=== PATIENT | female | born 1955 | race Caucasian/White ===

== ENCOUNTER 2018-03-27 20:22 | Inpatient (IN) | payer MEDICARE, MEDICAID ==
--- NOTE | 2018-03-27 20:59 | ED Physician Chart ---
ED Chief Complaint/HPI - Patient Information Date Seen:: 03/27/18 Time Seen:: 20:59 Chief Complaint:: Increased agitation History of Present Illness:: 63 yo female was brought from [facility] to ER for evaluation of increased agitation and combative behavior. Upon arrival, patient was yelling and screaming to herself and staff. Patient tore her pants at ER. Allergies:: Allergies Allergy/AdvReac Type Severity Reaction Status Date / Time chlorpromazine Allergy Verified 03/27/18 20:32 [From Thorazine] Vitals:: Vital Signs - 8 hr 03/27/18 20:25 Temp 98.1 F HR 95 RR 20 BP 123/88 O2 Sat % 96 ED Review of Systems - Review of Systems General/Constitutional: No fever Skin: No bruising Head: No headache Eyes: No pain ENT: No nasal drainage Neck: No neck pain Cardio Vascular: No chest pain Pulmonary: No SOB GI: No nausea, No vomiting Musculoskeletal: No bone or joint pain Psychiatric: Prior psych history Neurological: No focal symptoms ED Past Medical History - Past Medical History Past Medical History: HTN, PUD/GERD, Other (CKD, weakness, encephalopathy, polyneuropathy) Social History: Non Smoker, No Alcohol, No Drug Use Psychiatricy History: Bipolar, Other (Psychosis) Family Medical History - Family Member Mother History Unknown: Yes ED Physical Exam - Physical Examination General/Constitutional: Awake, Alert Head: Atraumatic Eyes: PERRL Skin: No ecchymosis ENMT: Nasal exam nl Neck: No nuchal rigidity Respiratory: Clear to Auscultation, No Wheeze/Rhonchi/Rales Cardio Vascular: RRR, No murmur, gallop, rubs, NL S1 S2 GI: No tenderness/rebounding/guarding Extremities: normal strength in all extremities Neuro/Psych: No focal deficits ED Labs/Radiology/EKG Results - Lab Results Results: Laboratory Last Values WBC 8.0 Th/cmm (4.8-10.8) 03/27/18 21:03 RBC 4.40 Mil/cmm (3.80-5.10) 03/27/18 21:03 Hgb 12.8 gm/dL (12-16) 03/27/18 21:03 Hct 39.0 % (41.0-60) L 03/27/18 21:03 MCV 88.6 fl (81-100) 03/27/18 21:03 MCH 29.1 pg (27.0-31.0) 03/27/18 21:03 MCHC Differential 32.9 pg (28.0-36.0) 03/27/18 21:03 RDW 13.7 % (11.5-20.0) 03/27/18 21:03 Plt Count 215 Th/cmm (150-400) 03/27/18 21:03 MPV 11.4 fl 03/27/18 21:03 Neutrophils % 65.1 % (40.0-80.0) 03/27/18 21:03 Lymphocytes % 23.6 % (20.0-50.0) 03/27/18 21: Monocytes % 7.9 % (2.0-10.0) 03/27/18 21: Eosinophils % 2.9 % (0.0-5.0) 03/27/18 21: Basophils % 0.5 % (0.0-2.0) 03/27/18 21:03 Sodium 141 mEq/L (136-145) 03/27/18 21:03 Potassium 3.4 mEq/L (3.5-5.1) L 03/27/18 21:03 Chloride 102 mEq/L (98-107) 03/27/18 21:03 Carbon Dioxide 28.4 mEq/L (21.0-31.0) 03/27/18 21:03 Anion Gap 14.0 (7.0-16.0) 03/27/18 21:03 BUN 8 mg/dL (7-25) 03/27/18 21: Creatinine 0.7 mg/dL (0.6-1.2) 03/27/18 21:03 Est GFR ( Amer) > 60.0 ml/min (>90) 03/27/18 21:03 Est GFR (Non-Af Amer) > 60.0 ml/min 03/27/18 21:03 BUN/Creatinine Ratio 11.4 03/27/18 21:03 Glucose 111 mg/dL (70-105) H 03/27/18 21:03 POC Glucose 98 MG/DL (70 - 105) 03/27/18 22:46 Calcium 10.1 mg/dL (8.6-10.3) 11/27/18 21:03 Total Bilirubin 0.5 mg/dL (0.3-1.0) 03/27/18 21:03 AST 21 U/L (13-39) 03/27/18 21:03 ALT 15 U/L (7-52) 03/27/18 21:03 Alkaline Phosphatase 50 U/L (34-104) 03/27/18 21:03 Troponin I 0.01 ng/mL (0.01-0.05) 03/27/18 21:03 B-Natriuretic Peptide 24.1 pg/mL (5.0-100.0) 03/27/18 21:03 Total Protein 6.3 gm/dL (6.0-8.3) 03/27/18 21:03 Albumin 4.0 gm/dL (3.7-5.3) 03/27/18 21:03 Globulin 2.3 gm/dL 03/27/18 21:03 Albumin/Globulin Ratio 1.7 (1.0-1.8) 03/27/18 21:03 Triglycerides 96 mg/dL (<150) 03/27/18 21:03 Cholesterol 106 mg/dL (<200) 03/27/18 21:03 LDL Cholesterol Direct 50 mg/dL (75-193) L 03/27/18 21:03 HDL Cholesterol 41 mg/dL (23-92) 03/27/18 21:03 TSH 2.08 uIU/ml (0.34-5.60) 03/27/18 21:03 - EKG Interpretations EKG Time:: 20:55 Rate & Rhythm: 90 bpm, sinus rhythm [place]: Terminal axis (90, 270) Intervals: RBBB Comments:: Abnormal EKG ED Assessment - Assessment General Assessment: Hypokalemia GERD Hypertension Psychosis Assessment/Comments:: CBC, CMP, Trop, BNP EKG, CXR (refused) KCl 40mEq po x 1 (patient threw the medication away) Admit patient to [facility] ED Septic Shock - . Is Septic Shock (SBP<90, OR Lactate>4 mmol\L) present?: No - <6hrs of presentation: Vital Signs: Vital Signs - 8 hr 03/27/18 20:25 Temp 98.1 F HR 95 RR 20 BP 123/88 O2 Sat % 96 ED Reassessment (Disposition) - Reassessment Reassessment Condition:: Improved - Patient Disposition Discharge/Transfer:: David w/in this hosp Admitting Medical Physician:: Jatinder Kingsley Admitting Psych Physician:: Melissa Wilde
[2018-03-27 21:12] LABS: % BASOPHILS 0.5 % (0.0-2.0); % EOSINOPHILS 2.9 % (0.0-5.0); % LYMPHOCYTES 23.6 % (20.0-50.0); % MONOCYTES 7.9 % (2.0-10.0); % NEUTROPHILS 65.1 % (40.0-80.0); EOSINOPHILE ABSOLUTE 0.2 Th/cmm (0.1-0.4); HEMOGLOBIN 12.8 gm/dL (12-16); LYMPHOCYTE ABSOLUTE 1.9 Th/cmm (1.5-3.0); MEAN CELL VOLUME 88.6 fl (81-100); MEAN CORPUSCULAR HEMOGLOBIN 29.1 pg (27.0-31.0); MEAN CORPUSCULAR HGB CONC 32.9 pg (28.0-36.0); MEAN PLATELET VOLUME 11.4 fl; MONOCYTE ABSOLUTE 0.6 Th/cmm (0.3-1.0); NEUTROPHILE ABSOLUTE 5.3 Th/cmm (1.8-8.0); PLATELET COUNT 215 Th/cmm (150-400); RED CELL DISTRIBUTION WIDTH 13.7 % (11.5-20.0)
[2018-03-27] MEDS ORDERED: Haloperidol Lactate 5 mg/mL 1mL Vial IM STA (21:15)
[2018-03-27] MEDS ORDERED: Haloperidol Lactate 5 mg/mL 1mL Vial ONE (21:18)
[2018-03-27 21:28] LABS: ALB/GLOB RATIO 1.7 (1.0-1.8); ALKALINE PHOSPHATASE 50 U/L (34-104); BILIRUBIN,TOTAL 0.5 mg/dL (0.3-1.0); BUN - UREA NITROGEN 8 mg/dL (7-25); CALCIUM SERUM 10.1 mg/dL (8.6-10.3); CARBON DIOXIDE 28.4 mEq/L (21.0-31.0); CHLORIDE 102 mEq/L (98-107); CREATININE - SERUM 0.7 mg/dL (0.6-1.2); GFR AFRICAN-AMERICAN > 60.0 ml/min (>90); GFR NON AFRICAN-AMERICAN > 60.0 ml/min; GLUCOSE 111 mg/dL (70-105); POTASSIUM SERUM 3.4 mEq/L (3.5-5.1); SGOT 21 U/L (13-39); SGPT/ALT 15 U/L (7-52); SODIUM SERUM 141 mEq/L (136-145); TOTAL PROTEIN,SERUM 6.3 gm/dL (6.0-8.3)
[2018-03-27] MEDS ORDERED: Potassium Chloride Elixir 20 mEq /15 mL UDC PO ONE (21:48)
[2018-03-27] MEDS ORDERED: Potassium Chloride Elixir 20 mEq /15 mL UDC ONE (21:51)
[2018-03-27 22:44] VITALS: BP 122/68
[2018-03-27] MEDS ORDERED: Maalox 30 mL Cup PO PRN (22:49)
[2018-03-27] MEDS ORDERED: Magnesium Hydroxide (MOM) 30 mL UDC PO PRN ×2 (22:49→23:09)
[2018-03-27] MEDS ORDERED: Non-Formulary Item 1 EA (Melatonin [Melatonin] 5 MG) PO PRN (23:09)
[2018-03-28 07:02] LABS: CHOLESTEROL 106 mg/dL (<200); HDL -HIGH DENSITY LIPOPROTEIN 41 mg/dL (23-92); TRIGLYCERIDES 96 mg/dL (<150)
[2018-03-28] MEDS: Pantoprazole 40 mg EC Tab PO SCH ×2 (08:45→09:00)
[2018-03-28] MEDS: Multivitamin Tab PO SCH ×2 (08:45→09:00)
[2018-03-28] MEDS: Sulfamethoxazole/TMP 800/160mg Tab PO SCH ×3 (08:45→20:34)
--- NOTE | 2018-03-28 08:45 | Diagnostic Imaging Report ---
CHEST X-RAY: AP view INDICATION: Shortness of breath COMPARISON: None FINDINGS: Increased interstitial lung markings are noted. There is no focal consolidation or pleural effusions The heart is normal in size. Degenerative changes of the spine are noted. IMPRESSION: Increased interstitial lung markings. Interstitial infiltrates and mild congestion cannot be excluded. No focal consolidation identified.
[2018-03-28] MEDS ORDERED: Sulfamethoxazole/TMP 800/160mg Tab PO SCH (09:00)
[2018-03-28] MEDS ORDERED: Haloperidol Lactate 5 mg/mL 1mL Vial IM ONE (10:36)
--- NOTE | 2018-03-29 02:23 | Psychiatric Evaluation ---
DATE OF SERVICE: 03/28/2018 IDENTIFYING DATA: The patient is a 63-year-old woman, resident of [facility]. Information obtained by directly interviewing the patient as well as reviewing the admission papers. The patient is admitted on a voluntary basis in view of her acute psychosis and mood swings. CHIEF COMPLAINT: "I don't care and they are bothering me." HISTORY OF PRESENT ILLNESS: This is the first psychiatric hospitalization to [facility] for this 63-year-old who has been diagnosed to have schizoaffective disorder and had been noncompliant to medication and has been getting easily agitated and aggressive towards the staff and this patient has to be admitted over here for stabilization. Chart is reviewed. The patient is interviewed. During the interview, the patient has been banging on the plank and screaming and yelling. The patient is refusing to eat and drink. The patient has to be given a dose of haloperidol to contain her agitation along with Benadryl and Ativan. The patient has been placed on 250 mg of Depakote twice a day and the patient is also told to be placed on Zyprexa 5 mg twice a day to contain her agitation. The patient at this time is not providing much of information. PAST PSYCHIATRIC HISTORY: Details are not known. PHYSICAL EXAMINATION: Requested by Dr. Kingsley. SUBSTANCE ABUSE HISTORY: Details are not known. SOCIAL HISTORY: The patient is a resident of the group home facility. STRENGTH AND ASSETS: The patient seems to be in good physical health and is motivated for treatment. MENTAL STATUS EXAMINATION: The patient is a 63-year-old, looking her stated age. Moderately obese, superficially cooperative. Eye contact is poor. Mood is noted to be irritable. Affect is constricted. Insight and judgment at this time are noted to be still impaired. Impulse control is noted to be poor. Coping skills are noted to be very poor. The patient has been having difficult time to cope with the stress. The patient has been very irritable, angry and not able to contract for safety. Coping skills at this time are noted to be extremely poor. The patient has paranoid delusions. The patient is also having acute mood swings. ASSESSMENT: The patient is alert and aware that she is in the hospital, but not able to focus at this time. Please note that the patient's behavior is equally danger to others in view of her aggressive behavior. DIAGNOSTIC IMPRESSION: AXIS I: Schizoaffective disorder. AXIS II: None. AXIS III: As per Dr. Kingsley. IMMEDIATE TREATMENT PLAN: The patient is going to be observed on the inpatient unit, provided supportive psychotherapy. The patient is going to be closely monitored. Once stabilized, the patient is going to be discharged ____ to be followed up on an outpatient basis. JOB# [id number]
--- NOTE | 2018-03-29 04:48 | Consultation ---
DATE OF CONSULTATION: 03/27/2018 INTERNAL MEDICINE CONSULTATION HISTORY OF PRESENT ILLNESS: The patient is a 63-year-old female patient of mine. PAST MEDICAL HISTORY: Significant for hypertension, CHF, coronary artery disease, arthritis, peptic ulcer disease, and osteoporosis. SOCIAL HISTORY: No history of smoking, alcohol abuse. OBSTETRIC HISTORY: P0+0, menses are postmenopausal. REVIEW OF SYSTEMS: No chest pain. No shortness of breath. No nausea. No vomiting. No melena. No hematochezia. PHYSICAL EXAMINATION: VITAL SIGNS: Stable. LUNGS: Clear. CARDIOVASCULAR: First and second heart sounds are normal. Rare systolic present. ABDOMEN: Soft. Bowel sounds present and good. EXTREMITIES: Show arthritis. NEUROLOGIC: The patient has dementia. MEDICAL DIAGNOSIS: As dictated above. Labs reviewed. Continue current medical management. JOB# [id number]
--- NOTE | 2018-03-29 04:55 | Progress Notes ---
DATE: 03/28/2018 INTERNAL MEDICINE CONSULTATION FOLLOWUP SUBJECTIVE: The patient is a 63-year-old female. Current medical problems include hypertension, CHF, coronary artery disease, peptic ulcer disease, gastritis, arthritis, and osteoporosis. No new symptoms. OBJECTIVE: VITAL SIGNS: Stable. LUNGS: Clear. HEART: First and second heart sounds are normal. Rare systolic present. ABDOMEN: Soft, bowel sounds present and good. EXTREMITIES: Show arthritis. NEUROLOGIC: The patient has dementia. PLAN: Continue current medical management. Psych consult reviewed. JOB# [id number]
[2018-03-29] MEDS: Pantoprazole 40 mg EC Tab PO SCH (08:48)
[2018-03-29] MEDS: Multivitamin Tab PO SCH (08:49)
[2018-03-29] MEDS: Sulfamethoxazole/TMP 800/160mg Tab PO SCH ×3 (08:49→21:09)
[2018-03-29] MEDS ORDERED: Probiotic Screen MC PRN (13:15)
--- NOTE | 2018-03-29 15:06 | Progress Notes ---
DATE: 03/29/2018 SUBJECTIVE: Staff was spoken to. The patient is interviewed. Mood is noted to be irritable. Affect is constricted. The patient is still screaming and yelling and is not able to contract for safety. The patient has been having acute mood swings. The patient is currently on Depakote 250 mg twice a day and Zyprexa has been placed on 5 mg twice a day. With these medications, the patient is going to be closely monitored. The patient has been having a low potassium and the staff requested to get in touch with the Dr. Kingsley to adjust the potassium level at this time. ASSESSMENT: The patient is still grossly psychotic and impulsive. PLAN: To continue the patient with the supportive therapy. I encouraged the patient to verbalize the concerns rather than to act out. JOB# [id number]
--- NOTE | 2018-03-30 06:14 | Progress Notes ---
DATE: 03/29/2018 INTERNAL MEDICINE CONSULTATION FOLLOWUP The patient is a 63-year-old female. Current medical problems include CHF, hypertension, coronary artery disease, peptic ulcer disease, gastritis, arthritis, and osteoporosis. CHIEF COMPLAINT: No new symptoms. No vomiting or diarrhea. No melena. No hematochezia. OBJECTIVE: VITAL SIGNS: Stable. LUNGS: Clear. HEART: First and second heart sounds are normal. Rare systolic present. ABDOMEN: Soft. Bowel sounds present and good. EXTREMITIES: Show arthritis. NEUROLOGIC: The patient has no focal motor deficit. PLAN: Continue current medical management. Psych consult reviewed. JOB# [id number]
[2018-03-30] MEDS: Pantoprazole 40 mg EC Tab PO SCH (08:40)
[2018-03-30] MEDS: Lactobacillus Rhamnosus GG 15 Billion CFU CAP.SPRINK PO SCH (08:40)
[2018-03-30] MEDS: Sulfamethoxazole/TMP 800/160mg Tab PO SCH ×2 (08:41→21:20)
--- NOTE | 2018-03-30 08:43 | Consultation ---
DATE OF CONSULTATION: 03/29/2018 REFERRING PHYSICIAN: Melissa Wilde MD TYPE OF CONSULTATION: Psychology HISTORY OF PRESENT ILLNESS: The patient is a 63-year-old female. The patient is a resident of [facility]. The following is by record review and by the patient's self-report. The patient is being admitted due to acute psychosis as well as extreme mood swings. The staff at the patient's facility report that the patient had become noncompliant with the medication and was easily agitated and aggressive towards staff members. At the time of the clinical interview the patient is yelling and banging her fists on the front of the Nena chair. The patient did not answer questions about suicidal ideation or homicidal ideation, plan or intention. The patient is difficult to redirect and is not making much sense at the time of this clinical interview. PAST MEDICAL HISTORY: Please see history and physical by Dr. Kingsley. PAST PSYCHIATRIC HISTORY: Records are unavailable. Details are unknown. The patient is under the care of Dr Salazar at her placement. SUBSTANCE ABUSE HISTORY: The patient did not answer these questions. PSYCHOSOCIAL HISTORY: The patient did not answer questions about occupational or educational history or anabaptism affiliation. The patient did not answer questions about history of physical or sexual abuse or current legal problems. The patient did not answer questions about any support system or family involvement in her care. MENTAL STATUS EXAMINATION: The patient appears to be older than her stated age. The patient's attitude is guarded and suspicious. Eye contact is fair to poor. Speech is loud and pressured and rambling. Mood is irritable. Affect is constricted. Thought process shows to be markedly tangential with loose associations and/or flight of ideas. Thought content is impoverished with a poor fund of knowledge. The patient did not answer questions about suicidal ideation, plan or intention. The patient denied having any auditory or visual hallucinations. The patient's behavior has been intermittently explosive on the unit and difficult to redirect. Impulse control is inadequate. Concentration is poor. The patient did not participate in the memory assessment. Sensorium is alert and oriented to self and place only. The patient is unable to contract for safety. The patient did not participate in the interpretation of proverbs. Insight is impaired. Judgment is impaired. DIAGNOSTIC IMPRESSION: AXIS I: Schizoaffective disorder. AXIS II: Deferred. AXIS III: Per Dr. Kingsley. TREATMENT PLAN: The patient has been seen by Dr. Wilde for psychiatric evaluation and for the management of the patient's psychotropic medications. We will provide supportive psychotherapy to include reality orientation, differentiation and integration. We will provide limit setting and de-escalation. We will provide stress management for the patient to increase her frustration tolerance. We will provide coping strategies for phase of life issues as well as chronic severe mental illness. We will provide motivational enhancement for the patient to become compliant and stay compliant with all aspects of her care and treatment and more specifically her medication regimen. We will encourage the patient to demonstrate emotional and self-regulation prior to her discharge. We will provide daily opportunities for the patient to verbally contract for safety with no self-harm or harm to others. Thank you, Dr. Wilde, for this consult and the opportunity to participate in this patient's care. JOB# [id number]
[2018-03-30] MEDS ORDERED: Haloperidol Lactate 5 mg/mL 1mL Vial ONE (10:58)
[2018-03-30] MEDS ORDERED: Haloperidol Lactate 5 mg/mL 1mL Vial IM ONE (11:05)
[2018-03-30] MEDS: Multivitamin Tab PO SCH (11:40)
--- NOTE | 2018-03-30 20:37 | Progress Notes ---
DATE: 03/30/2018 INTERNAL MEDICINE CONSULTATION FOLLOWUP SUBJECTIVE: The patient is a 63-year-old female. Current medical problem include hypertension, CHF, coronary artery disease, peptic ulcer disease, arthritis and osteoporosis. OBJECTIVE: VITAL SIGNS: Stable. LUNGS: Clear. HEART: First and second sounds are normal. Systolic present. ABDOMEN: Soft. Bowel sounds are present and good. EXTREMITIES: Show arthritis. NEUROLOGIC: The patient has no focal motor deficit. PLAN: Continue current medical management. Psych consult reviewed. JOB# [id number]
[2018-03-31] MEDS: Pantoprazole 40 mg EC Tab PO SCH (08:58)
[2018-03-31] MEDS: Sulfamethoxazole/TMP 800/160mg Tab PO SCH ×2 (08:58→20:34)
[2018-03-31] MEDS: Multivitamin Tab PO SCH (08:59)
[2018-03-31] MEDS: Lactobacillus Rhamnosus GG 15 Billion CFU CAP.SPRINK PO SCH (08:59)
--- NOTE | 2018-03-31 09:26 | Progress Notes ---
DATE: 03/30/2018 PSYCHIATRIC PROGRESS NOTE SUBJECTIVE: Staff was spoken to. The patient is interviewed. Mood is noted to be irritable. Affect is constricted. Insight and judgment, at this time, are noted to be still impaired. Impulse control is noted to be poor. Coping skills are also noted to be very poor. The patient has been very disruptive, screaming, and yelling, and has been trying to disrobe, and the patient has been found naked on the unit. The patient has been currently on Depakote and Zyprexa. PLAN: Continue the patient with the current medications. We encouraged the patient to verbalize the concerns. The patient is not ready to be discharged to a lower level of care in view of her acute psychosis. JOB# [id number]
--- NOTE | 2018-03-31 17:07 | Progress Notes ---
DATE: 03/31/2018 SUBJECTIVE: Staff was spoken to. The patient is interviewed. Mood is noted to be irritable. Affect is constricted. The patient's insight and judgment are noted to be still impaired. Impulse control is noted to be limited. The patient has been talking nonstop and the patient has no insight into her illness. Coping skills at this time are noted to be very poor. The patient has been currently on 5 mg twice a day of the olanzapine. Plan to increase the dose to 10 mg twice a day for her acute psychosis and the patient is going to be followed up with the supportive therapy. The patient, however, has been less aggressive compared to the other day. ASSESSMENT: The patient is still grossly psychotic and impulsive. PLAN: To continue the patient with the supportive therapy and follow up. [facility]# [id number]
[2018-04-01] MEDS: Multivitamin Tab PO SCH (08:52)
[2018-04-01] MEDS: Lactobacillus Rhamnosus GG 15 Billion CFU CAP.SPRINK PO SCH (08:52)
[2018-04-01] MEDS: Sulfamethoxazole/TMP 800/160mg Tab PO SCH ×2 (08:53→20:19)
[2018-04-01] MEDS: Pantoprazole 40 mg EC Tab PO SCH (08:53)
--- NOTE | 2018-04-01 16:14 | Progress Notes ---
DATE: 04/01/2018 SUBJECTIVE: The patient is a 63-year-old female. Current medical problems include hypertension, CHF, coronary artery disease, peptic ulcer disease, gastritis, arthritis. No new symptoms. OBJECTIVE: VITAL SIGNS: Stable. LUNGS: Clear. HEART: First and second heart sounds normal. No gallop. Systolic present. ABDOMEN: Soft. Bowel sounds are present and good. EXTREMITIES: Show arthritis. NEUROLOGIC: The patient has dementia. Continue current medical diagnoses. Continue current treatment. Psych consult reviewed. JOB# [id number]
--- NOTE | 2018-04-01 20:29 | Progress Notes ---
DATE: 04/01/2018 SUBJECTIVE: Staff was spoken to. The patient is interviewed. Mood is noted to be irritable. Affect is constricted. Insight and judgment at this time are noted to be impaired. Impulse control is noted to be limited. The patient has been screaming and yelling and is reluctant to comply with the medication. The patient has been extremely paranoid and has been refusing to comply with the medications by mouth and hence we decided to give the patient 5 mg of the Zyprexa, ____ mg of Benadryl IM and follow the patient with the supportive therapy. ASSESSMENT: The patient is still grossly psychotic. PLAN: To continue the patient with above changes with the medications and follow her up. JOB# [id number]
[2018-04-02] MEDS: Multivitamin Tab PO SCH (08:25)
[2018-04-02] MEDS: Sulfamethoxazole/TMP 800/160mg Tab PO SCH (08:25)
[2018-04-02] MEDS: Pantoprazole 40 mg EC Tab PO SCH (08:26)
[2018-04-02] MEDS: Lactobacillus Rhamnosus GG 15 Billion CFU CAP.SPRINK PO SCH (08:26)
--- NOTE | 2018-04-03 03:11 | Progress Notes ---
DATE: 04/02/2018 SUBJECTIVE: The patient is a 63-year-old female. Current medical problems include CHF, hypertension, coronary artery disease, peptic ulcer disease, gastritis, arthritis, and osteoporosis. No new symptoms. OBJECTIVE: VITAL SIGNS: Stable. LUNGS: Clear. HEART: First and second heart sounds are normal. No gallop. Systolic present. ABDOMEN: Soft. Bowel sounds present and good. EXTREMITIES: Show arthritis. NEUROLOGIC: The patient has no focal motor deficit. PLAN: Continue current medical management. Psych consult reviewed. JOB# [id number]
--- NOTE | 2018-04-03 03:20 | Progress Notes ---
DATE: 04/02/2018 PSYCHIATRIC PROGRESS NOTE Staff was spoken to. The patient is interviewed. Mood is noted to be irritable. Affect is constricted. The patient is constantly talking and has no insight into her illness. The patient is screaming and yelling. Coping skills are noted to be extremely poor. Mood swings are still noted and hence it is decided to increase the dose on the Depakote and add lithium and Klonopin to contain the mood swings and impulsivity and follow the patient with the supportive therapy and followup. JOB# [id number]
[2018-04-03] MEDS: Lactobacillus Rhamnosus GG 15 Billion CFU CAP.SPRINK PO SCH (09:13)
[2018-04-03] MEDS: Pantoprazole 40 mg EC Tab PO SCH (09:14)
[2018-04-03] MEDS: Multivitamin Tab PO SCH (09:14)
--- NOTE | 2018-04-03 10:15 | Progress Notes ---
DATE: 04/03/2018 INTERNAL MEDICINE CONSULTATION FOLLOWUP SUBJECTIVE: The patient is a 63-year-old female. Current medical problems include hypertension, CHF, coronary artery disease, peptic ulcer disease, gastritis, arthritis. No new symptoms. OBJECTIVE: VITAL SIGNS: Stable. LUNGS: Clear. HEART: First and second heart sound normal. Rare systolic present. ABDOMEN: Soft. Bowel sounds are present and good. EXTREMITIES: Show arthritis. NEUROLOGIC: The patient has dementia. ASSESSMENT AND PLAN: Continue current medical management. Psych consult reviewed. [facility]# [id number]
[2018-04-04] MEDS: Lactobacillus Rhamnosus GG 15 Billion CFU CAP.SPRINK PO SCH (08:32)
[2018-04-04] MEDS: Multivitamin Tab PO SCH (08:32)
[2018-04-04] MEDS: Pantoprazole 40 mg EC Tab PO SCH (08:33)
--- NOTE | 2018-04-04 09:02 | Progress Notes ---
DATE: 04/03/2018 SUBJECTIVE: Staff was spoken to. The patient is interviewed. Mood is noted to be irritable. Affect is constricted. Insight and judgment at this time are noted to be still impaired. Impulse control is noted to be poor. Coping skills are also noted to be poor. The patient has been having difficult time to cope with the stress. The patient's hyperverbosity has come down. No side effects to the medications are noted today. ASSESSMENT: The patient's mood swings are coming under control. PLAN: To continue the patient with the supportive therapy and followup. JOB# [id number]
--- NOTE | 2018-04-05 04:20 | Progress Notes ---
DATE: 04/04/2018 PSYCHIATRIC PROGRESS NOTE SUBJECTIVE: Staff was spoken to. The patient is interviewed. Mood is noted to be less irritable. Affect is appropriate. Mood swings are coming under control. No side effects to the medications are noted. The patient was agitated early and has to be given a dose of the Zyprexa and Benadryl. No side effects to the medications are noted at this time. ASSESSMENT: The patient is stabilizing. PLAN: To discharge the patient back to the [facility] and followup. JOB# [id number]
--- NOTE | 2018-04-07 10:56 | Discharge Summary ---
DATE OF DISCHARGE: 04/04/2018 PSYCHIATRIC DISCHARGE SUMMARY IDENTIFYING DATA: The patient is a 63-year-old woman, resident of [facility]. Information obtained directly interviewing the patient as well as reviewing the admission papers. JUSTIFICATION OF HOSPITALIZATION: The patient is admitted for acute mood swings and psychosis. CHIEF COMPLAINT: "I don't care, they are bothering me." DIAGNOSES AT THE TIME OF ADMISSION: AXIS I: Schizoaffective disorder. AXIS II: None. AXIS III: As per Dr. Kingsley. HISTORY OF PRESENT ILLNESS: Please review the 03/28/2018 dictation done by me. HOSPITAL COURSE AND RESPONSE TO TREATMENT: The patient has been observed on the inpatient unit, provided with supportive psychotherapy. The patient has been constantly screaming and yelling and has been aggressive towards the staff. The patient has been on Depakote, which was given 250 mg twice a day, Zyprexa was given 5 mg twice a day to contain the agitated behavior and patient has to be redirected constantly to calm down and then there are occasions where the Ativan has to be given to calm her down along with Haldol and ____. The patient's Zyprexa was increased to 10 mg twice a day and the patient was continued on the Depakote 500 mg twice a day. With these medications, patient's mood swings came under control and the patient was discharged on 04/04/2018 to [facility] [place] with recommendation that she is going to be followed up by ____. MENTAL STATUS EXAMINATION: At the time of discharge, the patient's mood is noted to be less irritable. Affect is appropriate. Not suicidal or homicidal. Insight and judgment are noted to be improving. Impulse control is noted to be fair. No side effects to the medications are noted. The patient has been able to verbalize the concerns rather than to act out at the time of discharge. CONDITION: At the time of the discharge is noted to be stable. DIAGNOSES AT THE TIME OF DISCHARGE: AXIS I: Schizoaffective disorder. AXIS II: None. AXIS III: Obesity and as per Dr. Kingsley. AFTERCARE PLAN: The patient's prognosis at the time of discharge is noted to be fair with the treatment. [facility]# [id number]
== END 2018-04-04 16:30 | DRG 885 ==
LOC: ER 20:22 → GERO2 21:35
PROVIDERS: ADMIT Psychiatry & Neurology Psychiatry; ATTEND Psychiatry & Neurology Psychiatry
DX: F25.9 Schizoaffective disorder, unspecified (principal); N18.9 Chronic kidney disease, unspecified; I13.0 Hypertensive heart and chronic kidney disease with heart failure and stage 1 through stage 4 chronic kidney disease, or unspecified chronic kidney disease; K21.9 Gastro-esophageal reflux disease without esophagitis; G62.9 Polyneuropathy, unspecified; E87.6 Hypokalemia; F29 Unspecified psychosis not due to a substance or known physiological condition; I50.9 Heart failure, unspecified; I25.10 Atherosclerotic heart disease of native coronary artery without angina pectoris; K27.9 Peptic ulcer, site unspecified, unspecified as acute or chronic, without hemorrhage or perforation; M81.0 Age-related osteoporosis without current pathological fracture; M19.90 Unspecified osteoarthritis, unspecified site; K29.70 Gastritis, unspecified, without bleeding; Z88.8 Allergy status to other drugs, medicaments and biological substances
CPT/HCPCS: 36415-UA; 71045-TC; 80053-TC; 80061-TC; 82948-90; 83036-90; 83880-TC; 84443-TC; 84484-TC; 85025-TC; 93005; A4216; J1200; J1630; J2060; J7051; Z7610